=== PATIENT | female | born 1960 | race African-American/Black ===

== ENCOUNTER 2017-03-07 18:26 | Emergency (ER) | payer BC ==
--- NOTE | 2017-03-07 19:01 | ER Document Report ---
ED Medical Screen (RME) - General Chief Complaint: Foreign Body Stated Complaint: FOREIGN OBJECT IN THROAT Notes: Patient feels as if she has a piece of possibly a taco caught in the back of her throat. Initially, it was somewhat on the right side, but now feels like it 's in the midline. At times it hurts her to swallow. Not short of breath. Has not produced any blood. Her voice is normal. I visualized his best I can by direct visualization of the posterior oropharynx and I do not see any injury or wound or blood or foreign body in any of the tissues in the back of the throat. TRAVEL OUTSIDE OF THE [place] IN LAST 30 DAYS: No - Related Data Allergies/Adverse Reactions: Penicillins Allergy (Verified 12/23/14 11:54) Past Medical History - Past Medical History Cardiac Medical History: Reports: Hx Hypercholesterolemia, Hx Hypertension Endocrine Medical History: Reports: Hx Diabetes Mellitus Type 2 Renal/ Medical History: Denies: Hx Peritoneal Dialysis GI Medical History: Reports: Hx Gastroesophageal Reflux Disease Past Surgical History: Reports: Hx Hysterectomy, Hx Tonsillectomy - Immunizations Hx Diphtheria, Pertussis, Tetanus Vaccination: No Physical Exam - Vital signs Vitals: Temp Pulse Resp BP Pulse Ox 97.6 F 105 H 18 155/72 H 100 03/07/17 18:30 03/07/17 18:30 03/07/17 18:30 03/07/17 18:30 03/07/17 18:30 Course - Vital Signs Vital signs: Temp Pulse Resp BP Pulse Ox 97.6 F 105 H 18 155/72 H 100 03/07/17 18:30 03/07/17 18:30 03/07/17 18:30 03/07/17 18:30 03/07/17 18:30
[2017-03-07] MEDS ORDERED: LIDOCAINE 2% VISCOUS SOLN 20 ML UDCUP PO ONE (20:56)
--- NOTE | 2017-03-07 21:28 | ER Document Report ---
ED Foreign Body - General Chief Complaint: Foreign Body Stated Complaint: FOREIGN OBJECT IN THROAT Mode of Arrival: Ambulatory Information source: Patient TRAVEL OUTSIDE OF THE [place] IN LAST 30 DAYS: No - HPI Patient complains to provider of: foreign body sensation in throat Notes: Patient was complaints of right-sided throat pain. The patient states that she ate a talk of salad and felt like a chip was stuck in the right side of her throat. She continues to have sharp pain when she swallows in the right side of her throat. She's had no choking or gagging. She has been able to eat food and drink water since this occurred without difficulty. She is able to swallow her secretions without difficulty. He denies any difficulty breathing or swallowing. No fevers. No nausea, vomiting, diarrhea. No bowel pain. No chest pain or short of breath. Pain is worse when she swallows, nothing makes it better. She denies any other complaints at this time. - Related Data Allergies/Adverse Reactions: Penicillins Allergy (Verified 12/23/14 11:54) Past Medical History - Social History Smoking Status: Never Smoker Family History: Reviewed & Not Pertinent - Past Medical History Cardiac Medical History: Reports: Hx Hypercholesterolemia, Hx Hypertension Endocrine Medical History: Reports: Hx Diabetes Mellitus Type 2 Renal/ Medical History: Denies: Hx Peritoneal Dialysis GI Medical History: Reports: Hx Gastroesophageal Reflux Disease Past Surgical History: Reports: Hx Hysterectomy, Hx Tonsillectomy - Immunizations Hx Diphtheria, Pertussis, Tetanus Vaccination: No Review of Systems - Review of Systems -: Yes All other systems reviewed and negative Physical Exam - Vital signs Vitals: Temp Pulse Resp BP Pulse Ox 97.6 F 105 H 18 155/72 H 100 03/07/17 18:30 03/07/17 18:30 03/07/17 18:30 03/07/17 18:30 03/07/17 18:30 Interpretation: Normal Notes: GENERAL: alert, cooperative, nontoxic, no distress. HEAD: normocephalic, atraumatic EYES: conjunctiva pink without discharge, no external redness or swelling. EARS: no external swelling, no external redness. TMs pearly martin with normal landmarks and no perforation. NOSE: atraumatic, no external swelling MOUTH/THROAT: mucous membranes moist and pink, posterior pharynx without erythema, swelling, exudate. No trismus or drooling. No foreign body identified on exam. There is no stridor. NECK: soft, supple, full range of motion, no meningismus. No swelling. CHEST: no distress, lungs clear and equal throughout. No wheezing, rales, rhonchi. CARDIAC: regular rate and rhythm, no murmur, normal capillary refill, normal pulses. No peripheral edema noted. ABDOMEN: Soft, nontender. BACK: full range of motion, no CVA tenderness. EXTREMITIES: full range of motion of all extremities. No redness, no swelling. NEURO: alert and oriented 3, no focal deficits, full range of motion of all extremities. PYSCH: appropriate mood, affect. Patient is cooperative. SKIN: pink, warm, dry, no rash. Course - Re-evaluation Re-evalutation: 03/08/17 00:03 Patient is nontoxic. Stable vitals. The patient has a sensation that she may have something stuck in the right side of her throat, but she is able to swallow food and drink without any difficulty. She is having no drooling, no stridor, respiratory distress. She is resting comfortably. CT shows no obvious foreign body or other abnormality. His possible that the patient has a scratch is giving her a foreign body sensation. This point the patient will be discharged home with a referral to ENT. She was instructed that if she continues to have the feeling for by she should follow-up with ENT, she should return to emergency department if pain gets worse, she has persistent vomiting, difficulty breathing or swallowing, or has any further concerns. The patient is noted to have elevated blood pressure during today's emergency department visit. The patient was informed of this finding. The patient was instructed that this may be related to pre-hypertension and requires further evaluation with a primary care provider. The patient has no hypertensive symptoms at this time. The patient's emergency department workup and current diagnosis were explained to the patient and or family. Follow-up instructions were provided. Medications if prescribed were discussed. Instructions for when to return to the emergency department including specific worrisome symptoms were discussed with the patient and/or family. - Vital Signs Vital signs: Temp Pulse Resp BP Pulse Ox 97.6 F 105 H 18 155/72 H 100 03/07/17 18:30 03/07/17 18:30 03/07/17 18:30 03/07/17 18:30 03/07/17 18:30 - Laboratory Result Diagrams: 03/07/17 21:24 03/07/17 21:24 Laboratory results interpreted by me: 03/07/17 03/07/17 21:24 21:24 RDW 14.5 H Glucose 179 H - Diagnostic Test Radiology reviewed: Image reviewed, Reports reviewed Discharge - Discharge Clinical Impression: Foreign body sensation in throat Condition: Stable Disposition: HOME, SELF-CARE Instructions: Esophageal Foreign Body ([facility]) Additional Instructions: Follow-up with ENT if not better by Thursday. Follow-up sooner for increasing pain, difficulty breathing, difficulty swallowing, chest pain, fever, persistent vomiting, or any further concerns. Your blood pressure was elevated during today's visit. Have this rechecked with your doctor. Referrals: [facility] [Primary Care Provider] - Follow up as needed MISAEL BRODERICK MD [ACTIVE STAFF] - Follow up as needed
[2017-03-07 21:35] LABS: ABSOLUTE LYMPHOCYTES (AUTO) 1.4 10^3/uL (0.5-4.7); ABSOLUTE MONOCYTES (AUTO) 0.3 10^3/uL (0.1-1.4); ABSOLUTE NEUT (AUTO) 4.4 10^3/uL (1.7-8.2); BASOPHILS % (AUTO) 0.5 % (0-2); EOSINOPHILS % (AUTO) 0.3 % (0-6); HEMATOCRIT 36.3 % (36.0-47.0); HEMOGLOBIN 12.1 g/dL (12.0-15.5); LYMPHOCYTES % (AUTO) 23.3 % (13-45); MEAN CORPUSCULAR HGB CONC 33.4 g/dL (32.0-36.0); MEAN CORPUSCULAR VOLUME 81 fl (80-97); MONOCYTES % (AUTO) 4.6 % (3-13); RED BLOOD COUNT 4.49 10^6/uL (3.72-5.28); RED CELL DISTRIBUTION WIDTH 14.5 % (11.5-14.0); SEGMENTED NEUTROPHILS % (AUTO) 71.3 % (42-78); WHITE BLOOD COUNT 6.2 10^3/uL (4.0-10.5)
[2017-03-07 21:48] LABS: ALANINE AMINOTRANSFERASE 31 U/L (9-52); ALBUMIN 4.5 g/dL (3.5-5.0); ALKALINE PHOSPHATASE 68 U/L (38-126); ANION GAP 11 (5-19); ASPARTATE AMINO TRANSFERASE 20 U/L (14-36); BILIRUBIN,DIRECT 0.1 mg/dL (0.0-0.4); BILIRUBIN,TOTAL 0.5 mg/dL (0.2-1.3); BLOOD UREA NITROGEN 16 mg/dL (7-20); CALCIUM 10.2 mg/dL (8.4-10.2); CARBON DIOXIDE 28 mmol/L (22-30); CHLORIDE 104 mmol/L (98-107); CREATININE RESULT 0.55 mg/dL (0.52-1.25); GLUCOSE 179 mg/dL (75-110); POTASSIUM 3.8 mmol/L (3.6-5.0); SODIUM 142.6 mmol/L (137-145); TOTAL PROTEIN 7.6 g/dL (6.3-8.2)
[2017-03-08 00:42] VITALS: BP 149/70
== END 2017-03-08 00:41 | disposition home or self-care (01) ==
LOC: ER 18:26
DX: R09.89 Other specified symptoms and signs involving the circulatory and respiratory systems (principal)
CPT/HCPCS: 99284; 36415; 85025; 80053; 70491; J3490

== ENCOUNTER → 2017-12-03 | Outpatient (CLI) | payer BC ==
--- NOTE | 2017-12-03 16:41 | XCELERA REPORT ---
[address] [address] Lower Extremity Venous Evaluation Name: HERNAN BENTLEY Age: 57 yrs Gender: Female : 1960 Patient Status: Outpatient Patient Location: Study Date: 12/03/2017 02:51 PM Procedure: Color flow and duplex imaging of the veins of the left lower extremity as well as the right Common Femoral vein. Reason For Study: LLE PAIN Ordering Physician: GUSTAVO CAMARENA PA-C Performed By: Dee Dee Rock Right Sided Venous Evaluation The right common femoral vein is fully compressible. Spontaneous and phasic flow is present in the right common femoral vein. Left Sided Venous Evaluation Normal vessel filling wall to wall, compression and augmentation as well as Colour flow down to the infrageniculate veins. Interpretation Summary No duplex evidence of DVT or obstruction in the left lower extremity nor in the right Common Femoral vein. : GUSTAVO CAMARENA PA-C > John Mina
== END ==
LOC: SP 14:32
PROVIDERS: ATTEND Physician Assistant
DX: M25.562 Pain in left knee (principal)
CPT/HCPCS: 93971

== ENCOUNTER 2018-04-30 20:10 | Observation (INO) | payer BC ==
--- NOTE | 2018-04-30 20:55 | ER Document Report ---
ED General - General Chief Complaint: Chest Pain Stated Complaint: CHEST PAIN Time Seen by Provider: 04/30/18 20:36 Notes: Patient is a 57-year-old female with a past medical history of morbid obesity, lif-kdmugxg-pzdlplkif diabetes, hypertension, hyperlipidemia, no known history of coronary artery disease who presents with left-sided chest pressure that has been ongoing since approximately 10 AM. Patient describes it as a constant, pressure-like sensation over her left chest that was moderately improved with nitroglycerin. She denies a history of similar symptoms in the past. Nothing triggered or worsen the pain when present. She denies any radiation of the pain but does note associated diaphoresis and shortness of breath. She had a normal stress test approximately 1-2 years ago but has never had a cardiac catheterization. To my assessment she states that her chest pain is mostly resolved although she does note some slight ongoing heaviness to the left side of her chest. She has not seen her primary doctor regarding today's concerns. She denies any history of DVT or pulmonary embolus and does not use any supplemental estrogen therapy. TRAVEL OUTSIDE OF THE [place] IN LAST 30 DAYS: No - Related Data Allergies/Adverse Reactions: Penicillins Allergy (Verified 12/23/14 11:54) Past Medical History - General Information source: Patient - Social History Smoking Status: Never Smoker Chew tobacco use (# tins/day): No Frequency of alcohol use: None Drug Abuse: None Lives with: Family Family History: Reviewed & Not Pertinent Patient has suicidal ideation: No Patient has homicidal ideation: No - Past Medical History Cardiac Medical History: Reports: Hx Hypercholesterolemia, Hx Hypertension Endocrine Medical History: Reports: Hx Diabetes Mellitus Type 2 Renal/ Medical History: Denies: Hx Peritoneal Dialysis GI Medical History: Reports: Hx Gastroesophageal Reflux Disease Past Surgical History: Reports: Hx Hysterectomy, Hx Tonsillectomy - Immunizations Hx Diphtheria, Pertussis, Tetanus Vaccination: No Review of Systems - Review of Systems Notes: Constitutional: Negative for fever. HENT: Negative for sore throat. Eyes: Negative for visual changes. Cardiovascular: Positive for chest pain. Respiratory: Positive for shortness of breath. Gastrointestinal: Negative for abdominal pain, vomiting or diarrhea. Genitourinary: Negative for dysuria. Musculoskeletal: Negative for back pain. Skin: Negative for rash. Neurological: Negative for headaches, weakness or numbness. 10 point ROS negative except as marked above and in HPI. Physical Exam - Vital signs Vitals: Resp Pulse Ox 10 L 95 04/30/18 20:16 04/30/18 20:16 Interpretation: Tachycardic Notes: PHYSICAL EXAMINATION: GENERAL: Well-appearing, well-nourished and in no acute distress. HEAD: Atraumatic, normocephalic. EYES: Pupils equal round and reactive to light, extraocular movements intact, sclera anicteric, conjunctiva are normal. ENT: nares patent, oropharynx clear without exudates. Moist mucous membranes. NECK: Normal range of motion, supple without lymphadenopathy LUNGS: Breath sounds clear to auscultation bilaterally and equal. No wheezes rales or rhonchi. HEART: Regular tachycardia without murmurs ABDOMEN: Soft, nontender, normoactive bowel sounds. No guarding, no rebound. No masses appreciated. EXTREMITIES: Normal range of motion, no pitting or edema. No cyanosis. NEUROLOGICAL: No focal neurological deficits. Moves all extremities spontaneously and on command. PSYCH: Normal mood, normal affect. SKIN: Warm, Dry, normal turgor, no rashes or lesions noted. Course - Re-evaluation Re-evalutation: 04/30/18 20:54 Presentation of chest pain in an otherwise well appearing patient. Heart score is 4 at time of presentation due to age, risk factors, and history. EKG without ischemic changes. CXR without evidence of pneumothorax or pneumonia. No widened mediastinum. Aortic dissection also seems unlikely given history, symmetric pulses, CXR, and vitals. Pulmonary embolus is also in the differential given the patient's tachycardia which she does not have a history. Will obtain a d-dimer with a positive threshold of 0.58. Awaiting troponin assay testing and then will discuss with the hospitalist for admission given the patient is moderately high risk. 04/30/18 22:23 D-dimer is elevated. Will obtain CTA of the chest to further evaluate. The patient otherwise continues to appear well, no current chest pain. 05/01/18 01:39 CTA of the chest is clear. Repeat troponin is normal. Patient is currently without chest pain. However given her elevated heart score and inability to obtain rapid outpatient follow-up will discuss with the hospitalist for admission. - Vital Signs Vital signs: Temp Pulse Resp BP Pulse Ox 98.6 F 19 118/89 H 98 04/30/18 20:30 05/01/18 00:31 05/01/18 00:31 05/01/18 00:31 - Laboratory Result Diagrams: 04/30/18 21:00 04/30/18 21:00 Laboratory results interpreted by me: 04/30/18 04/30/18 04/30/18 21:00 21:00 21:00 MCH 26.7 L RDW 14.6 H Seg Neuts % (Manual) 90 H Lymphocytes % (Manual) 5 L Abs Neuts (Manual) 8.5 H D-Dimer 0.82 H Potassium 3.4 L Glucose 147 H - Diagnostic Test Radiology reviewed: Image reviewed, Reports reviewed Radiology results interpreted by me: 04/30/18 20:55 Chest x-ray: No acute infiltrate or pneumothorax - EKG Interpretation by Me Additional EKG results interpreted by me: 04/30/18 20:55 Sinus tachycardia. Rate 108. No ST elevations or depressions. QTC is 472. Discharge - Discharge Clinical Impression: Tachycardia Chest pain Qualifiers: Chest pain type: unspecified Qualified Code(s): R07.9 - Chest pain, unspecified Condition: Fair Disposition: ADMITTED OBSERVATION Admitting Provider: Hospitalist Unit Admitted: Telemetry Referrals: [facility] [NO LOCAL MD] - Follow up as needed
[2018-04-30] MEDS ORDERED: NITROGLYCERIN 0.4 MG/TAB 25 TAB/BOTTLE SL PRN (20:57)
--- NOTE | 2018-04-30 20:58 | RADIOLOGY REPORT (SQ) ---
EXAM DESCRIPTION: CHEST SINGLE VIEW COMPLETED DATE/TIME: 04/30/2018 8:49 pm REASON FOR STUDY: ana stein COMPARISON: 03/27/2016 EXAM PARAMETERS: NUMBER OF VIEWS: One view. TECHNIQUE: Single frontal radiographic view of the chest acquired. RADIATION DOSE: NA LIMITATIONS: None. FINDINGS: LUNGS AND PLEURA: No opacities, masses or pneumothorax. No pleural effusion. MEDIASTINUM AND HILAR STRUCTURES: No masses. Contour normal. HEART AND VASCULAR STRUCTURES: Heart normal in size. Normal vasculature. BONES: No acute findings. HARDWARE: None in the chest. OTHER: No other significant finding. IMPRESSION: NO ACUTE RADIOGRAPHIC FINDING IN THE CHEST. TECHNICAL DOCUMENTATION: JOB ID: [id number] [employer]- All Rights Reserved Reading location - IP/workstation name: [email or web address]
[2018-04-30 21:27] LABS: HEMATOCRIT 36.3 % (36.0-47.0); HEMOGLOBIN 12.1 g/dL (12.0-15.5); MEAN CORPUSCULAR HEMOGLOBIN 26.7 pg (27.0-33.4); MEAN CORPUSCULAR HGB CONC 33.4 g/dL (32.0-36.0); MEAN CORPUSCULAR VOLUME 80 fl (80-97); PLATELET COUNT 334 10^3/uL (150-450); RED BLOOD COUNT 4.53 10^6/uL (3.72-5.28); RED CELL DISTRIBUTION WIDTH 14.6 % (11.5-14.0); WHITE BLOOD COUNT 9.4 10^3/uL (4.0-10.5)
[2018-04-30 21:37] LABS: ANION GAP 14 (5-19); BLOOD UREA NITROGEN 16 mg/dL (7-20); CALCIUM 9.8 mg/dL (8.4-10.2); CARBON DIOXIDE 25 mmol/L (22-30); CHLORIDE 99 mmol/L (98-107); GLUCOSE 147 mg/dL (75-110); POTASSIUM 3.4 mmol/L (3.6-5.0); SODIUM 137.9 mmol/L (137-145)
[2018-04-30 21:46] LABS: ABSOLUTE LYMPHOCYTES# (MANUAL) 0.5 10^3/uL (0.5-4.7); ABSOLUTE MONOCYTES # (MANUAL) 0.4 10^3/uL (0.1-1.4); ABSOLUTE NEUTROPHILS# (MANUAL) 8.5 10^3/uL (1.7-8.2); BASOPHILS % (MANUAL) 0 % (0-2); EOSINOPHILS % (MANUAL) 1 % (0-6); LYMPHOCYTES % (MANUAL) 5 % (13-45); MONOCYTES % (MANUAL) 4 % (3-13); SEGMENTED NEUTROPHILS % (MAN) 90 % (42-78); TOTAL CELLS COUNTED 100
[2018-04-30 21:49] LABS: ANISOCYTOSIS SLIGHT; PLATELET COMMENT ADEQUATE; PLATELET LARGE PRESENT; TOXIC GRANULATION SLIGHT
--- NOTE | 2018-04-30 21:51 | EKG REPORT ---
SEVERITY:- OTHERWISE NORMAL ECG - SINUS TACHYCARDIA : Confirmed by: Silke Alcaraz MD 30-Apr-2018 21:51:18
[2018-04-30] MEDS: FENTANYL CITRATE INJ/PF 100 MCG/2 ML AMPUL IV PRN (22:39)
[2018-04-30] MEDS ORDERED: ONDANSETRON HCL INJ/PF 4 MG/2 ML SDV IV ONE (23:08)
--- NOTE | 2018-04-30 23:55 | RADIOLOGY REPORT (SQ) ---
EXAM DESCRIPTION: CT CHEST ANGIOGRAPHY WITHOUT THEN WITH IV CONTRAST CLINICAL HISTORY: 57 years Female, eval pe Comparison: 5.5.16 Technique: IV contrast. Coronal and sagittal reformat. 3d reconstruction. This exam was performed according to our departmental dose-optimization program, which includes automated exposure control, adjustment of the mA and/or kV according to patient size and/or use of iterative reconstruction technique.[facility]: Dose Right [facility]: CareDose [facility]: Dose Right [facility]: Teradose 4D [facility]: Smart DanceTrippin LIMITATIONS: None Findings: No pulmonary embolus. No right ventricular strain. Clear lungs. Atherosclerosis. Inferior neck, axillae, mediastinum, lungs, airway, lymphatics, heart, vasculature, upper abdomen, and musculoskeleton appear unremarkable. Impression: No pulmonary embolus. No acute cardiopulmonary findings.
[2018-05-01] MEDS ORDERED: METOCLOPRAMIDE HCL INJ/PF 10 MG/2 ML SDV IV ONE (00:01)
[2018-05-01] MEDS ORDERED: NITROGLYCERIN 0.4 MG/TAB 25 TAB/BOTTLE SL PRN (01:41)
[2018-05-01] MEDS ORDERED: DEXTROSE 40% GEL 15 GM TUBE PO PRN ×2 (01:41)
[2018-05-01] MEDS ORDERED: INSULIN LISPRO 100 UNIT/ML 3 ML VIAL SUBCUT PRN (01:41)
[2018-05-01] MEDS ORDERED: DEXTROSE 50%-WATER 25 GM/50 ML DISP.SYRIN IV PRN ×2 (01:41)
[2018-05-01] MEDS ORDERED: GLUCAGON,HUMAN RECOMB 1 MG INJ IM PRN (01:41)
[2018-05-01] MEDS ORDERED: HYDRALAZINE HCL INJ/PF 20 MG/1 ML SDV IV PRN (01:44)
[2018-05-01] MEDS: FENTANYL CITRATE INJ/PF 100 MCG/2 ML AMPUL IV PRN (01:52)
[2018-05-01] MEDS ORDERED: FAMOTIDINE 20 MG TABLET PO ONE (02:13)
[2018-05-01] MEDS: HEPARIN SOD (PORCINE) 5,000 UNIT/ML 1 ML SYRINGE SUBCUT SCH ×2 (05:38→13:22)
[2018-05-01] MEDS: DIAZEPAM 5 MG TABLET PO PRN ×2 (05:38→11:09)
[2018-05-01] MEDS ORDERED: LACTULOSE SYRUP 20 GM/30 ML UDCUP PO ONE (06:26)
--- NOTE | 2018-05-01 06:32 | PDOC H&P ---
History of Present Illness Admission Date/PCP: 05/01/18 01:47 IGNACIO SAVAGE MD Patient complains of: Palpitations and chest pain History of Present Illness: HERNAN BENTLEY is a 57 year old female with history of obesity, diabetes, hypertension and dyslipidemia. Presents with 12 hours of 5 out of 5, intermittent dull, chest and abdominal pain without radiation, associated with nausea, flatulence, anxiety, shortness of breath and palpitations. Patient denies exacerbating or alleviating factors. Patient had negative cardiac stress test approximately 2 years ago. Patient denies recent change in medications and is otherwise felt well in the emergency room she has an unremarkable workup including a CT of the chest which is negative. She is referred to the hospitalist for observation. Past Medical History Cardiac Medical History: Reports: Hyperlipidema, Hypertension Endocrine Medical History: Reports: Diabetes Mellitus Type 2, Obesity GI Medical History: Reports: Gastroesophageal Reflux Disease Psychiatric Medical History: Denies: Substance Abuse, Tobacco Dependency Past Surgical History Past Surgical History: Reports: Hysterectomy, Tonsillectomy Social History Information Source: Patient Lives with: Family Smoking Status: Never Smoker Frequency of Alcohol Use: None Hx Recreational Drug Use: No - denies Drugs: None Hx Prescription Drug Abuse: No - Advance Directive Resuscitation Status: Full Code Family History Family History: Reviewed & Not Pertinent Parental Family History Reviewed: Yes Children Family History Reviewed: Yes Sibling(s) Family History Reviewed.: Yes Medication/Allergy Home Medications: Aspirin [Ecotrin 81 mg EC Tablet] 81 mg PO DAILY tabec 03/28/16 Atorvastatin Calcium [Lipitor 20 mg Tablet] 20 mg PO QHS #30 tablet 03/28/16 Lisinopril/Hydrochlorothiazide [Lisinopril-Hctz 20-25 mg Tab] 1 each PO DAILY # 30 tablet 03/28/16 Metformin HCl [Glucophage 500 mg Tablet] 500 mg PO BID #60 tablet 03/28/16 Ondansetron [Zofran Odt 4 mg Tablet] 1 tab PO Q6H #15 tab.rapdis 04/23/16 Allergies/Adverse Reactions: Penicillins Allergy (Verified 12/23/14 11:54) Review of Systems Constitutional: ABSENT: chills, fever(s), headache(s), weight gain, weight loss Eyes: ABSENT: visual disturbances Ears: ABSENT: hearing changes Cardiovascular: ABSENT: chest pain, dyspnea on exertion, edema, orthropnea, palpitations Respiratory: ABSENT: cough, hemoptysis Gastrointestinal: ABSENT: abdominal pain, constipation, diarrhea, hematemesis, hematochezia, nausea, vomiting Genitourinary: ABSENT: dysuria, hematuria Musculoskeletal: ABSENT: joint swelling Integumentary: ABSENT: rash, wounds Neurological: ABSENT: abnormal gait, abnormal speech, confusion, dizziness, focal weakness, syncope Psychiatric: ABSENT: anxiety, depression, homidical ideation, suicidal ideation Endocrine: ABSENT: cold intolerance, heat intolerance, polydipsia, polyuria Hematologic/Lymphatic: ABSENT: easy bleeding, easy bruising Physical Exam Vital Signs: Temp Pulse Resp BP Pulse Ox 99.3 F 111 H 15 121/60 99 05/01/18 02:58 05/01/18 02:58 05/01/18 02:58 05/01/18 02:58 05/01/18 02:58 Intake & Output 04/29/18 04/30/18 05/01/18 11:59 11:59 11:59 Weight 99 kg General appearance: PRESENT: cooperative, disheveled, mild distress, well- developed, well-nourished Head exam: PRESENT: atraumatic, normocephalic Eye exam: PRESENT: conjunctiva pink, EOMI, PERRLA. ABSENT: scleral icterus Ear exam: PRESENT: normal external ear exam Mouth exam: PRESENT: moist, tongue midline Neck exam: ABSENT: carotid bruit, JVD, lymphadenopathy, thyromegaly Respiratory exam: PRESENT: clear to auscultation gabriel. ABSENT: rales, rhonchi, wheezes Cardiovascular exam: PRESENT: RRR. ABSENT: diastolic murmur, rubs, systolic murmur Pulses: PRESENT: normal dorsalis pedis pul Vascular exam: PRESENT: normal capillary refill GI/Abdominal exam: PRESENT: distended, hypoactive bowel sounds, normal bowel sounds, soft, tenderness. ABSENT: guarding, mass, organolmegaly, rebound Rectal exam: PRESENT: deferred Extremities exam: PRESENT: full ROM. ABSENT: calf tenderness, clubbing, pedal edema Neurological exam: PRESENT: alert, awake, oriented to person, oriented to place , oriented to time, oriented to situation, CN II-XII grossly intact. ABSENT: motor sensory deficit Psychiatric exam: PRESENT: anxious. ABSENT: homicidal ideation, suicidal ideation Skin exam: PRESENT: dry, intact, warm. ABSENT: cyanosis, rash Results Impressions: Chest X-Ray 04/30/18 20:39 IMPRESSION: NO ACUTE RADIOGRAPHIC FINDING IN THE CHEST. Assessment & Plan - Diagnosis (1) Atypical chest pain Is this a current diagnosis for this admission?: Yes Plan: Atypical chest pain though the patient's pain is atypical there are multiple risk factors for coronary artery disease and subsequently will observe and evaluation of acute coronary syndrome versus coronary artery disease with anginal equivalents. Cardiac monitoring blood pressure Q6 hours ,TSH, lipid profile, serial cardiac enzymes and cardiac stress test (2) Diabetes mellitus type 2 in nonobese Is this a current diagnosis for this admission?: Yes Plan: Home regiment with exception to metformin and Humalog sliding scale (3) HTN (hypertension) Is this a current diagnosis for this admission?: Yes Plan: RAEGAN inhibitor and home regiment - Time Time Spent: 30 to 50 Minutes - Inpatient Certification Medical Necessity: Need Close Monitoring Due to Risk of Patient Decompensation
[2018-05-01 08:10] LABS: ANION GAP 14 (5-19); BLOOD UREA NITROGEN 11 mg/dL (7-20); CALCIUM 9.7 mg/dL (8.4-10.2); CARBON DIOXIDE 28 mmol/L (22-30); CHLORIDE 98 mmol/L (98-107); CHOLESTEROL 190.64 mg/dL (0-200); GLUCOSE 153 mg/dL (75-110); POTASSIUM 3.2 mmol/L (3.6-5.0); SODIUM 139.8 mmol/L (137-145); TRIGLYCERIDES 55 mg/dL (<150)
[2018-05-01 08:21] LABS: CREATINE KINASE MB 0.72 ng/mL (<4.55); DIRECT LDL 100 mg/dL (<100)
[2018-05-01 08:26] LABS: TROPONIN I < 0.012 ng/mL
[2018-05-01] MEDS ORDERED: ASPIRIN 81 MG TABLET, ENT COATED PO SCH (10:00)
[2018-05-01] MEDS ORDERED: (PENDING PHARMACY ID) (Lisinopril/Hydrochlorothiazide [Lisinopril-Hctz 20-25 Mg Tab] 1 EAC PO SCH (10:00)
[2018-05-01] MEDS ORDERED: LISINOPRIL 10 MG TABLET PO SCH (10:00)
[2018-05-01] MEDS ORDERED: HYDROCHLOROTHIAZIDE 25 MG TABLET PO SCH (10:00)
[2018-05-01] MEDS ORDERED: REGADENOSON INJ 0.4 MG/5 ML DISP.SYRIN IV ONE (10:35)
[2018-05-01] MEDS: DOCUSATE SODIUM 100 MG CAPSULE PO SCH ×2 (11:11→17:24)
--- NOTE | 2018-05-01 13:53 | DRAGON STRESS TEST REPORT ---
INTRAVENOUS LEXISCAN CARDIOLITE STRESS TEST USING SINGLE PHOTON EMMISION COMPUTERIZED TOMOGRAPHIC. DATE OF PROCEDURE: May 01, 2018, INDICATION : Chest pain CARDIAC RISK FACTORS: Diabetes, hypertension, dyslipidemia RESTING EKG: Sinus rhythm without any baseline ST-T wave changes. STRESS EKG: No significant ST segment changes noted with LexiScan bolus REASON FOR TERMINATION: Protocol. PROCEDURE REPORT: Baseline heart rate 107 beats per minute with blood pressure of 112/66. Patient had no significant complaints. Patient was bolused with Lexiscan 0.4 mg intravenously followed by saline bolus. Heart rate at 2 minutes post bolus 126 with a blood pressure of 101/54. 3 minutes post bolus heart rate 125 with blood pressure of 103/53. No significant EKG changes were noted. Patient had no significant complaints during the procedure or postprocedure. CONCLUSIONS: Normal EKG and hemodynamic response to IV LexiScan. NUCLEAR DATA: At rest the patient was given 13.15 millicuries of technetium 99 sestamibi injected intravenously. As per protocol rest gated SPECT images were obtained. On day of stress test, the patient was given intravenous LexiScan at a dose of 0.4 mg in 5 mL intravenously, followed by flush with normal saline. Subsequently the stress dose of 33.1 millicuries of technetium 99 sestamibi was injected intravenously. As per protocol stress gated images were obtained. NUCLEAR INTERPRETATION: Both raw and processed data were used for interpretation. Visual, qualitative, computer-generated quantitative data was used. There was good myocardial uptake of technetium compound. Motion artifact and soft tissue attenuations were noted. Increased visceral uptake was noted. No definitive areas of transient perfusion defect noted, No definitive areas of fixed perfusion defect or scars noted. EKG gated imaging showed LV EF at 62, rest and stress gated EF similar visually. T. I D. ratio was 1.11. Lung heart ratio noted to be within normal limits 0.32. No significant extracardiac and abnormal radiotracer activities were noted. RV free wall uptake was noted to be WNL. IMPRESSION: Also refer to comments under nuclear interpretation. Also test results needs to be interpreted in the context of pretest probability. 1. No definitive areas of transient perfusion defect noted. 2. There is no definitive scintigraphic evidence of myocardial infarction/scar. 3. EKG gated imaging shows left ventricular ejection fraction of approx. 62 %. 4. Clinical correlation requested as occasionally single vessel disease or balanced ischemia could be missed. In approximately 10% of the cases Lexiscan may not cause adequate vasodilatory stress. RECOMMENDATIONS: Aggressive risk factor modification and medical management. Further evaluation may be needed if continued symptoms or other high risk indicators are noted on clinical evaluation. Close cardiology follow-up is also recommended. Clinical correlation with echocardiogram derived ejection fraction. Inability to exercise by itself can lead to increased cardiovascular event risks. Consider cardiology consultation and or follow-up if clinically indicated. I am available for cardiology evaluation and consultation if requested by the outside deliverer, unless patient already has a banquet prep cook. GLORY
--- NOTE | 2018-05-01 14:43 | PDOC CONSULTATION ---
Consultation Consult Date: 05/01/18 Attending physician:: LETY OLSEN Consult reason:: Chest pain History of Present Illness Admission Date/PCP: 05/01/18 01:47 IGNACIO SAVAGE MD Patient complains of: Chest pain History of Present Illness: HERNAN BENTLEY is a 57 year old female with history of obesity, diabetes, hypertension and dyslipidemia. Presents with 12 hours of 5 out of 5, intermittent dull, chest and abdominal pain without radiation, associated with nausea, flatulence, anxiety, shortness of breath and palpitations. Patient denies exacerbating or alleviating factors. Patient had negative cardiac stress test approximately 2 years ago. Patient denies recent change in medications and is otherwise felt well in the emergency room she has an unremarkable workup including a CT of the chest which is negative. She is referred to the hospitalist for observation. This history was reviewed and confirmed. Patient described the chest pain as aching and tightness in the chest which tends to get worse by taking in a deep breath and also with some twisting and turning. Patient describes the discomfort is much improved than when she came in. Patient does describe a history of acid reflux. Although patient denies anxiety, patient is brother in the room admits that patient has been anxious and stressed. Patient does give a family history of premature CAD. Past Medical History Cardiac Medical History: Reports: Hyperlipidema, Hypertension Endocrine Medical History: Reports: Diabetes Mellitus Type 2, Obesity GI Medical History: Reports: Gastroesophageal Reflux Disease Psychiatric Medical History: Denies: Depression, Substance Abuse, Tobacco Dependency Past Surgical History Past Surgical History: Reports: Hysterectomy, Tonsillectomy Social History Information Source: Patient Lives with: Family Smoking Status: Never Smoker Frequency of Alcohol Use: None Hx Recreational Drug Use: No - denies Drugs: None Hx Prescription Drug Abuse: No - Advance Directive Resuscitation Status: Full Code Surrogate healthcare decision maker:: Patient's brother is the surrogate decision maker Family History Family History: Reviewed & Not Pertinent Parental Family History Reviewed: Yes Children Family History Reviewed: Yes Sibling(s) Family History Reviewed.: Yes - Family history of premature CAD and CHF the family Medication/Allergy Home Medications: Aspirin [Ecotrin 81 mg EC Tablet] 81 mg PO DAILY tabec 03/28/16 Cetirizine HCl [Zyrtec 10 mg Tablet] 10 mg PO DAILYP PRN 05/01/18 Hydrochlorothiazide [Hydrodiuril 25 mg Tablet] 25 mg PO DAILY 05/01/18 Losartan Potassium [Cozaar 25 mg Tablet] 25 mg PO DAILY 05/01/18 Multivit/Folic Acid/Vit K1 [One-A-Day Women's 50 Plus Tab] 1 each PO DAILY 05/01 Pravastatin Sodium [Pravachol] 40 mg PO DAILY 05/01/18 Saxagliptin HCl/Metformin HCl [Kombiglyze Xr 5-1,000 mg Tab] 1 tab PO QAM Ubidecarenone/Vit E Acet [Co Q-10 100 mg Softgel] 1 each PO DAILY 05/01/18 Allergies/Adverse Reactions: Penicillins Allergy (Severe, Verified 05/01/18 10:34) Anaphylaxis Review of Systems Review of Systems: Please see history of present illness and past medical history as wall. Constitutional: No fever or chills reported. Head : No recent chronic headaches, recent head injury. Eyes: No recent eye pain, diplopia, redness, discharge, acute visual changes. Ears: No recent chronic ear pain, acute hearing loss, ear discharge. Oral cavity: No recent ulcerations, bleeding, oral cavity discomfort. Neck: No recent acute neck pain reported. Hematologic: No recent easy bruising or bleeding. Lymphatic: No recent lymph node enlargement reported. Cardiovascular system review: See history of present illness. Respiratory system review: No hemoptysis or blood clots in the lungs reported. Mild Shortness of breath on exertion Gastrointestinal system review: Negative for any recent acute hematemesis, melena. History of acid reflux. Genitourinary system review: No recent acute or chronic hematuria, flank pain, UTI etc. reported. Skin system review: Negative for any recent abnormal bruising, no rash, no pruritus reported. Neurologic: No prior history of strokes, mini strokes, seizure disorder. Psychologic: No history of major psychosis or major depression reported. Musculoskeletal: Minor aches and pains reported. No acute joint swelling reported. Endocrine: No recent polyuria, polydipsia, recent heat or cold intolerance. Physical Exam Vital Signs: Temp Pulse Resp BP Pulse Ox 100.5 F H 116 H 16 127/54 H 98 05/01/18 07:34 05/01/18 07:34 05/01/18 07:34 05/01/18 07:34 05/01/18 07:34 Intake & Output 04/30/18 05/01/18 05/02/18 06:59 06:59 06:59 Weight 99 kg Exam: GENERAL: well-nourished and in no acute distress. Alert and oriented x3 HEAD: Atraumatic, normocephalic. EYES: Pupils equal round and reactive to light, extraocular movements intact, sclera anicteric, conjunctiva are normal. ENT: TMs normal, nares patent, oropharynx clear without exudates. Moist mucous membranes. No oral ulcerations or bleeding gums noted NECK: supple without lymphadenopathy. Trachea is central. No cervical or axillary lymphadenopathy noted. Carotids are 2+, JVD WNL LUNGS: Respiration seems nonlabored, no significant accessory muscle action noted. Breath sounds clear to auscultation bilaterally and equal noted. No wheezes rales or rhonchi noted. No significant dullness noted on percussion. CHEST: Palpation of the chest wall shows mild midsternal chest wall tenderness. HEART: [place] ATMOSPHERIC PHYSICIST, No PSH, 1/6 ATILIO aortic area, 1/6 zhang systolic murmur mitral area, no rubs, no gallops. ABDOMEN: Soft, no significant tenderness appreciated, normoactive bowel sounds. No guarding, no rebound. No rigidity noted . No masses appreciated. EXTREMITIES: Pedal pulses are 1-2+, no calf tenderness noted. No clubbing or cyanosis. negative pedal edema noted NEUROLOGICAL: Focused neurological exam showed no significant neurologic deficit. Normal speech, no focal weakness appreciated. PSYCH: Normal mood, normal affect. Judgment and insight within normal limits. SKIN: No significant ecchymosis, skin is noted to be warm. MUSCULOSKELETAL EXAM: No significant acute joint swelling noted. Results Laboratory Results: 05/01/18 06:35 05/01/18 06:35 Sodium 139.8 Potassium 3.2 L Chloride 98 Carbon Dioxide 28 Anion Gap 14 BUN 11 Creatinine 0.65 Est GFR ( Amer) > 60 Est GFR (Non-Af Amer) > 60 Glucose 153 H Calcium 9.7 Triglycerides 55 Cholesterol 190.64 LDL Cholesterol Direct 100 VLDL Cholesterol 11.0 HDL Cholesterol 58 05/01/18 06:35 CK-MB (CK-2) 0.72 Troponin I < 0.012 EKG Comments: Sinus rhythm without any sustained tachycardia or bradycardia Impressions: Chest X-Ray 04/30/18 20:39 IMPRESSION: NO ACUTE RADIOGRAPHIC FINDING IN THE CHEST. Assessment & Plan - Diagnosis (1) Chest pain Qualifiers: Chest pain type: unspecified Qualified Code(s): R07.9 - Chest pain, unspecified Is this a current diagnosis for this admission?: Yes (2) Tachycardia Is this a current diagnosis for this admission?: Yes (3) Diabetes mellitus type 2 in nonobese Is this a current diagnosis for this admission?: Yes (4) HTN (hypertension) Qualifiers: Hypertension type: essential hypertension Qualified Code(s): I10 - Essential (primary) hypertension Is this a current diagnosis for this admission?: Yes (5) Hypercholesteremia Is this a current diagnosis for this admission?: Yes - Notes Notes: Chest pain: This is felt to be atypical and most likely noncardiac. Patient does however have significant cardiac risk factors. Patient therefore underwent a nuclear stress test which was noted to be negative for pharmacologic stress-induced ischemia. Patient noted to have some chest wall tenderness therefore likely to be chest wall inflammation related but patient does seem to have symptoms of reflux and anxiety therefore GERD and anxiety disorder also in the differential diagnosis. Patient will benefit from empiric proton pump inhibitor therapy and also nonsteroidal anti-inflammatory medications or other analgesics as needed. If patient continues with chest pain and there are no other causes noted further evaluation with either a cardiac CTA, cardiac catheter etc. may become indicated. Tachycardia: Possibly related to stress and anxiety. Recommend beta 1 selective beta-shelly and anxiolytics as needed. May also consider SSRI agent. Diabetes: Currently being expertly managed by hospitalist. Hypertension: Blood pressure goal is 135/85 or less less. Patient seems to be on a good regimen. Dyslipidemia: Continue statin therapy. At this point will sign off. Patient given my card. She can follow-up with me if she wishes. Please reconsult if needed. - Time Time Spent: 30 to 50 Minutes - CODE STATUS was discussed, patient remains full code. More than 50% of the time spent coordinating care, discussing management plans with involved caregivers. Management plans discussed with involved personnels. Medical decision making was of moderate to high complexity, patient 's has multiple comorbidities. Medications reviewed and adjusted accordingly: Yes
[2018-05-01 14:51] LABS: CREATINE KINASE MB 0.65 ng/mL (<4.55)
[2018-05-01 14:53] LABS: TROPONIN I < 0.012 ng/mL
[2018-05-01] MEDS ORDERED: CETIRIZINE 10 MG TABLET PO PRN (15:30)
[2018-05-01] MEDS ORDERED: PHENOL/SODIUM PHENOLATE 100 SPRAY/177 ML BOTTLE PO PRN (16:35)
[2018-05-01] MEDS ORDERED: AZITHROMYCIN 250 MG TABLET PO ONE (17:00)
[2018-05-01 17:36] VITALS: BP 118/62
[2018-05-01] MEDS ORDERED: ONDANSETRON HCL INJ/PF 4 MG/2 ML SDV ONE (18:31)
[2018-05-01] MEDS ORDERED: ONDANSETRON HCL INJ/PF 4 MG/2 ML SDV IV ONE (19:00)
--- NOTE | 2018-05-01 19:35 | PDOC DISCHARGE SUMMARY ---
General - Admit/Disc Date/PCP Admission Date/Primary Care Provider: 05/01/18 01:47 IGNACIO SAVAGE MD Discharge Date: 05/01/18 - Discharge Diagnosis (1) Atypical chest pain Is this a current diagnosis for this admission?: Yes (2) Diabetes mellitus type 2 in nonobese Is this a current diagnosis for this admission?: Yes (3) HTN (hypertension) Is this a current diagnosis for this admission?: Yes (4) Strep pharyngitis Is this a current diagnosis for this admission?: Yes - Additional Information Resuscitation Status: Full Code Discharge Diet: Regular, Other (Comments) - Drink plenty of fluids Discharge Activity: Activity As Tolerated, Balance Activity w/Rest Prescriptions: Lidocaine HCl [Lidocaine HCl Viscous] 15 ml MM Q6HP PRN #100 ml PRN Reason: For Sore Throat Ondansetron [Ondansetron Odt] 4 mg PO Q6HP PRN #20 tab.rapdis PRN Reason: For Nausea/Vomiting RX: Azithromycin [Zithromax] 250 mg PO DAILY #4 tablet RX: Phenol/Sodium Phenolate [Chloraseptic Sore Throat [place] 177 ml] 2 spray PO PRN PRN #1 bottle PRN Reason: Home Medications: RX: Aspirin [Ecotrin 81 mg EC Tablet] 81 mg PO DAILY tabec 03/28/16 Lidocaine HCl [Lidocaine HCl Viscous] 15 ml MM Q6HP PRN #100 ml 05/01/18 Ondansetron [Ondansetron Odt] 4 mg PO Q6HP PRN #20 tab.rapdis 05/01/18 RX: Azithromycin [Zithromax] 250 mg PO DAILY #4 tablet 05/01/18 RX: Cetirizine HCl [Zyrtec 10 mg Tablet] 10 mg PO DAILYP PRN 05/01/18 RX: Hydrochlorothiazide [Hydrodiuril 25 mg Tablet] 25 mg PO DAILY 05/01/18 RX: Losartan Potassium [Cozaar 25 mg Tablet] 25 mg PO DAILY 05/01/18 RX: Multivit/Folic Acid/Vit K1 [One-A-Day Women's 50 Plus Tab] 1 each PO DAILY 05/01/18 RX: Phenol/Sodium Phenolate [Chloraseptic Sore Throat [place] 177 ml] 2 spray PO PRN PRN #1 bottle 05/01/18 RX: Pravastatin Sodium [Pravachol] 40 mg PO DAILY 05/01/18 RX: Saxagliptin HCl/Metformin HCl [Kombiglyze Xr 5-1,000 mg Tab] 1 tab PO QAM RX: Ubidecarenone/Vit E Acet [Co Q-10 100 mg Softgel] 1 each PO DAILY 05/01/18 History of Present Illness History of Present Illness: Per H&P by Dr. Porter HERNAN BENTLEY is a 57 year old female with history of obesity, diabetes, hypertension and dyslipidemia. Presents with 12 hours of 5 out of 5, intermittent dull, chest and abdominal pain without radiation, associated with nausea, flatulence, anxiety, shortness of breath and palpitations. Patient denies exacerbating or alleviating factors. Patient had negative cardiac stress test approximately 2 years ago. Patient denies recent change in medications and is otherwise felt well in the emergency room she has an unremarkable workup including a CT of the chest which is negative. She is referred to the hospitalist for observation. Hospital Course Hospital Course: The patient was admitted with atypical chest pain. EKG demonstrated sinus tachycardia. Chest x-ray was benign. CTA of the chest was normal. Serial troponins were negative 4 Lipid panel is acceptable. A1c 6.4% Nuclear stress test was normal. The patient was admitted to the medical floor on continuous cardiac telemetry. She had no further episodes of chest pain while inpatient. However, she did develop a low-grade temperature (100.5) and mild tachycardia (108). Beginning the day the patient began complaining of right ear pain and sore throat. She reported pain with speaking and swallowing. Rapid strep test was obtained and found to be positive. Cardiac workup and positive strep results were discussed with the patient. The patient then confirms that she has had similar chest discomfort and palpitations in the past when acutely ill and running fevers. She feels relieved by the positive strep test and expresses that she no longer has concerns regarding her chest discomfort. As the patient has an anaphylactic reaction to penicillins, she is placed on azithromycin. She is also provided prescriptions for Chloraseptic throat spray , Zofran, and viscous lidocaine for swish/gargle as needed for discomfort. She is recommended to follow-up with her primary care provider within 1 week. She is also instructed to notify her established outpatient shank pinner of her admission and follow-up as directed. At time of discharge the patient is in stable condition, maintaining oxygen saturation on room air, and denies chest discomfort. Physical Exam Vital Signs: Temp Pulse Resp BP Pulse Ox 98.8 F 100 12 118/62 98 05/01/18 15:21 05/01/18 15:21 05/01/18 15:21 05/01/18 15:21 05/01/18 15:21 Intake & Output 04/30/18 05/01/18 05/02/18 06:59 06:59 06:59 Intake Total 360 Balance 360 Weight 99 kg General appearance: PRESENT: no acute distress, obese, well-developed, well- nourished Head exam: PRESENT: atraumatic, normocephalic Eye exam: PRESENT: conjunctiva pink, EOMI, PERRLA. ABSENT: scleral icterus Ear exam: PRESENT: normal external ear exam Mouth exam: PRESENT: moist, tongue midline Throat exam: PRESENT: post pharyngeal erythema, other - s/p tonsillectomy.. ABSENT: tonsillar erythema, tonsillar exudate, tonsillogmegaly Neck exam: ABSENT: carotid bruit, JVD, lymphadenopathy, thyromegaly Respiratory exam: PRESENT: clear to auscultation gabriel. ABSENT: rales, rhonchi, wheezes Cardiovascular exam: PRESENT: RRR. ABSENT: diastolic murmur, rubs, systolic murmur Pulses: PRESENT: normal dorsalis pedis pul Vascular exam: PRESENT: normal capillary refill GI/Abdominal exam: PRESENT: normal bowel sounds, soft. ABSENT: distended, guarding, mass, organolmegaly, rebound, tenderness Rectal exam: PRESENT: deferred Extremities exam: PRESENT: full ROM. ABSENT: calf tenderness, clubbing, pedal edema Neurological exam: PRESENT: alert, awake, oriented to person, oriented to place , oriented to time, oriented to situation, CN II-XII grossly intact. ABSENT: motor sensory deficit Psychiatric exam: PRESENT: appropriate affect, normal mood. ABSENT: homicidal ideation, suicidal ideation Skin exam: PRESENT: dry, intact, warm. ABSENT: cyanosis, rash Results Laboratory Results: 05/01/18 06:35 05/01/18 06:35 Sodium 139.8 Potassium 3.2 L Chloride 98 Carbon Dioxide 28 Anion Gap 14 BUN 11 Creatinine 0.65 Est GFR ( Amer) > 60 Est GFR (Non-Af Amer) > 60 Glucose 153 H Calcium 9.7 Triglycerides 55 Cholesterol 190.64 LDL Cholesterol Direct 100 VLDL Cholesterol 11.0 HDL Cholesterol 58 05/01/18 05/01/18 06:35 13:46 CK-MB (CK-2) 0.72 0.65 Troponin I < 0.012 < 0.012 Impressions: Chest X-Ray 04/30/18 20:39 IMPRESSION: NO ACUTE RADIOGRAPHIC FINDING IN THE CHEST. Qualifiers - * PATIENT BEING DISCHARGED WITH ANY OF THE FOLLOWING DIAGNOSIS: No Plan Discharge Plan: Discharge to home with self-care. Follow-up with primary care provider within 1 week. Notify shank pinner of admission and follow-up as directed. Time Spent: Less than 30 Minutes
[2018-05-01] MEDS ORDERED: ATORVASTATIN CALCIUM 20 MG TABLET PO SCH (22:00)
[2018-05-01] MEDS ORDERED: ATORVASTATIN CALCIUM 10 MG TABLET PO SCH (22:00)
[2018-05-02] MEDS ORDERED: LOSARTAN POTASSIUM 25 MG TABLET PO SCH (10:00)
[2018-05-02] MEDS ORDERED: (PENDING PHARMACY ID) (Multivit/Folic Acid/Vit K1 [One-A-Day Women's 50 Plus Tab] 1 EACH) PO SCH (10:00)
[2018-05-02] MEDS ORDERED: (PENDING PHARMACY ID) (Pravastatin Sodium [Pravachol] 40 MG) PO SCH (10:00)
[2018-05-02] MEDS ORDERED: (PENDING PHARMACY ID) (Ubidecarenone/Vit E Acet [Co Q-10 100 Mg Softgel] 1 EACH) PO SCH (10:00)
[2018-05-02] MEDS ORDERED: MULTIVITAMIN TABLET PO SCH (10:00)
== END 2018-05-01 19:00 | disposition home or self-care (01) ==
LOC: ER 20:10 → EH 05-01 01:47 → 4S 05-01 02:50
PROVIDERS: ADMIT Internal Medicine; ATTEND Internal Medicine
DX: R07.89 Other chest pain (principal); E11.9 Type 2 diabetes mellitus without complications; I10 Essential (primary) hypertension; J02.0 Streptococcal pharyngitis; E78.5 Hyperlipidemia, unspecified; R00.0 Tachycardia, unspecified; R10.9 Unspecified abdominal pain; R11.0 Nausea; F41.9 Anxiety disorder, unspecified; R06.02 Shortness of breath; R00.2 Palpitations; H92.01 Otalgia, right ear; R14.3 Flatulence; Z79.82 Long term (current) use of aspirin; Z79.899 Other long term (current) drug therapy; Z79.84 Long term (current) use of oral hypoglycemic drugs; Z90.710 Acquired absence of both cervix and uterus; Z82.49 Family history of ischemic heart disease and other diseases of the circulatory system
CPT/HCPCS: 93005; 99285; 96374; 96375; 36415 ×2; 82553; 87880; 82962; 85025; 80048 ×2; 84484 ×2; 83036; 85379; 80061; 93017; 71045; 78452; 71275; 93010; G0378 ×2; A9500; J2785; J1644; J3010 ×2; J2765; J3490; J2405 ×2; Q9969

== ENCOUNTER 2018-12-21 00:02 | Emergency (ER) | payer BC, OTHER ==
--- NOTE | 2018-12-21 01:38 | ER Document Report ---
ED Medical Screen (RME) - General Chief Complaint: Chest Pain Stated Complaint: CHEST PAIN Time Seen by Provider: 12/21/18 01:31 Primary Care Provider: IGNACIO SAVAGE MD [Primary Care Provider] - Follow up as needed Mode of Arrival: Wheelchair Information source: Patient Notes: 58-year-old female presented to ED for complaint of chest pain all day with fever and chills the last 3-4 days. She states she is also had a cough nasal drainage or weakness for the last 3-4 days. She states her mouth feels very dry the day. States she went to the MD on Thursday and they told her that she thought she might have caught a bug but I did not do a chest x-ray run any labs on her. Family stated that because she continued to have symptoms they brought her to the emergency room. Patient is alert oriented respirations regular and unlabored lungs are clear to auscultation. Patient does have a elevated blood sugar in the emergency room of 193 by fingerstick. CBC chemistry and troponin and chest x-ray were ordered. EKG is already been done. I have greeted and performed a rapid initial assessment of this patient. A comprehensive ED assessment and evaluation of the patient, analysis of test results and completion of medical decision making process will be conducted by an additional ED providers. TRAVEL OUTSIDE OF THE [place] IN LAST 30 DAYS: No - Related Data Allergies/Adverse Reactions: Penicillins Allergy (Severe, Verified 05/01/18 10:34) Anaphylaxis Past Medical History - Past Medical History Cardiac Medical History: Reports: Hx Hypercholesterolemia, Hx Hypertension Endocrine Medical History: Reports: Hx Diabetes Mellitus Type 2 Renal/ Medical History: Denies: Hx Peritoneal Dialysis GI Medical History: Reports: Hx Gastroesophageal Reflux Disease Psychiatric Medical History: Denies: Hx Depression Past Surgical History: Reports: Hx Hysterectomy, Hx Tonsillectomy - Immunizations Hx Diphtheria, Pertussis, Tetanus Vaccination: No Physical Exam - Vital signs Vitals: Temp Pulse Resp BP Pulse Ox 100.2 F 105 H 20 122/67 100 12/21/18 00:19 12/21/18 00:19 12/21/18 00:19 12/21/18 00:19 12/21/18 00:19 Course - Vital Signs Vital signs: Temp Pulse Resp BP Pulse Ox 100.2 F 105 H 20 122/67 100 12/21/18 00:19 12/21/18 00:19 12/21/18 00:19 12/21/18 00:19 12/21/18 00:19 - Laboratory Laboratory results interpreted by me: 12/21/18 00:25 POC Glucose 193 H Doctor's Discharge - Discharge Referrals: IGNACIO SAVAGE MD [Primary Care Provider] - Follow up as needed
--- NOTE | 2018-12-21 02:41 | ER Document Report ---
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 Patient reports she was at work when she felt lightheaded and dizzy, felt as though she was going to "pass out" but did not, denies preceding symptoms such as tachycardia, no recent fevers or chills, no other symptoms currently is a patient reports being at her baseline. Patient did report having small amount of chest pain immediately after the event but this was short-lived and is consistent with her previous episodes of near syncope. Of note, patient has been evaluated by neurology and has received numerous workups with an unknown etiology according to her report. Onset: Sudden Provocation: Unknown Quality: Near syncope Radiation: None Severity: Mild Timing: Resolved REVIEW OF SYSTEMS: CONSTITUTIONAL : Denies fever or chills, no sweats. Denies recent illness. EENT: Denies eye, ear, throat, or mouth pain or symptoms. Denies nasal or sinus congestion. CARDIOVASCULAR: Denies chest pain. RESPIRATORY: Denies cough, cold, or chest congestion. Denies shortness of breath, difficulty breathing, or wheezing. GASTROINTESTINAL: Denies abdominal pain. Denies nausea, vomiting, or diarrhea. Denies constipation. GENITOURINARY: Denies difficulty urinating, painful urination, burning, frequency, or blood in urine. FEMALE GENITOURINARY: Denies vaginal bleeding, abnormal or irregular periods. Last menstrual period MUSCULOSKELETAL: Denies neck or back pain or joint pain or swelling. SKIN: Denies rash or skin lesions. HEMATOLOGIC : Denies easy bruising or bleeding. LYMPHATIC: Denies swollen, enlarged glands. NEUROLOGICAL: Positive for near syncope. Denies altered mental status or loss of consciousness. Denies headache. Denies weakness or paralysis or loss of use of either side. Denies problems with gait or speech. Denies sensory or motor loss. PSYCHIATRIC: Denies anxiety or stress or depression. All other systems reviewed and negative. PHYSICAL EXAMINATION: GENERAL: Well-appearing, well-nourished and in no acute distress. HEAD: Atraumatic, normocephalic. No scalp deformity, depression, or crepitance. EYES: Pupils are 3 mm and equal/round/reactive to light, extraocular movements intact, sclera anicteric, conjunctiva are normal. ENT: Nares patent bilaterally, oropharynx clear without exudates or palatal petechia. Moist mucous membranes. No tonsil hypertrophy. NECK: Normal range of motion, supple without lymphadenopathy. LUNGS: Breath sounds present, equal, and clear to auscultation bilaterally. No wheezes, rales, or rhonchi. HEART: Regular rate and rhythm without murmurs, rubs, or gallops. 2+ peripheral pulses. Normal capillary refill. ABDOMEN: Soft, nontender, nondistended. Normoactive bowel sounds. No guarding, no rebound. No masses appreciated. BACK: Normal contour, no midline tenderness. Rectal exam deferred. PELVC: Deferred. EXTREMITIES: Normal range of motion, no pitting or edema. No cyanosis. NEUROLOGICAL: No focal neurological deficits. Moves all extremities spontaneously and on command. PSYCH: Normal mood, normal affect. No suicidal thoughts/ideations. No homocidal thoughts/ideations. No hallucinations. SKIN: Warm, dry, normal turgor, no rashes or lesions noted. ASSESSMENT AND PLAN: This patient is a 58-year-old female who presents with recurrent episode of near syncope, currently unknown etiology but could include dehydration versus vasovagal syndrome versus orthostasis versus cardiac versus UTI. 1. Will obtain labs including cardiac enzymes, thyroid panel, urinalysis, d-d rebeca, and reassess. 2. Will likely discharge patient if workup is normal/negative. TRAVEL OUTSIDE OF THE [place] IN LAST 30 DAYS: No - Related Data Allergies/Adverse Reactions: Penicillins Allergy (Severe, Verified 05/01/18 10:34) Anaphylaxis Past Medical History - General Information source: Patient - Social History Smoking Status: Never Smoker Chew tobacco use (# tins/day): No Frequency of alcohol use: None Drug Abuse: None Lives with: Family Family History: Reviewed & Not Pertinent Patient has suicidal ideation: No Patient has homicidal ideation: No - Past Medical History Cardiac Medical History: Reports: Hx Hypercholesterolemia, Hx Hypertension Pulmonary Medical History: Reports: None EENT Medical History: Reports: None Neurological Medical History: Reports: None Endocrine Medical History: Reports: Hx Diabetes Mellitus Type 2 Renal/ Medical History: Reports: None. Denies: Hx Peritoneal Dialysis Malignancy Medical History: Reports: None GI Medical History: Reports: Hx Gastroesophageal Reflux Disease Musculoskeletal Medical History: Reports None Skin Medical History: Reports None Psychiatric Medical History: Reports: None Denies: Hx Depression Traumatic Medical History: Reports: None Infectious Medical History: Reports: None Past Surgical History: Reports: Hx Breast Surgery - L breast cancer removed, Hx Hysterectomy, Hx Tonsillectomy - Immunizations Immunizations up to date: Yes Hx Diphtheria, Pertussis, Tetanus Vaccination: No Physical Exam - Vital signs Vitals: Temp Pulse Resp BP Pulse Ox 100.2 F 105 H 20 122/67 100 12/21/18 00:19 12/21/18 00:19 12/21/18 00:19 12/21/18 00:19 12/21/18 00:19 Course - Re-evaluation Re-evalutation: 12/21/18 06:57 Lab work indicates negative cardiac enzymes, negative d-dimer, negative urinalysis. However, thyroid panel shows evidence of hypothyroidism. Chest x- ray is negative for acute pneumonia. Patient does have mild tachycardia, when considered in context of a likely viral etiology, is a normal response to fever. She was given oral Tylenol with improvement while in the emergency department. She will be discharged home with return precautions and follow-up with her primary physician. Patient voices both understanding and agreeing with the plan. - Vital Signs Vital signs: Temp Pulse Resp BP Pulse Ox 98.9 F 109 H 20 111/56 L 99 12/21/18 04:30 12/21/18 02:45 12/21/18 02:45 12/21/18 02:45 12/21/18 02:45 - Laboratory Result Diagrams: 12/21/18 03:53 12/21/18 03:53 Laboratory results interpreted by me: 12/21/18 12/21/18 12/21/18 00:25 01:06 03:53 Hct 35.2 L RDW 14.2 H Seg Neuts % (Manual) 93 H Lymphocytes % (Manual) 2 L Abs Lymphs (Manual) 0.1 L Glucose POC Glucose 193 H TSH Urine Ketones TRACE H Urine Ascorbic Acid 20 H 12/21/18 12/21/18 03:53 03:53 Hct RDW Seg Neuts % (Manual) Lymphocytes % (Manual) Abs Lymphs (Manual) Glucose 179 H POC Glucose TSH 0.41 L Urine Ketones Urine Ascorbic Acid - Diagnostic Test Radiology reviewed: Image reviewed, Reports reviewed - EKG Interpretation by Me EKG shows normal: Sinus rhythm Rate: Tachycardia Rhythm: NSR [place]/QRS: No: Right axis deviation, Left axis deviation, RBBB, LBBB, IVCD, LAHB/LAFB, LPHB/LPFB, Bifasicular block Voltage: No: Increased voltage, Consistant with LVH, Decreased voltage, Throughout, Limb leads P Waves: No: CHETNA, LAE, Absent, AV Dissociation, Other Heart block present: No: 1st Degree, Mobitz 1, Mobitz 2, CHB (3rd degree block) When compared to previous EKG there are: No significant change Discharge - Discharge Clinical Impression: Viral syndrome Hypothyroidism Qualifiers: Hypothyroidism type: unspecified Qualified Code(s): E03.9 - Hypothyroidism, unspecified Condition: Good Disposition: HOME, SELF-CARE Instructions: Viral Syndrome ([facility]), Hypothyroidism ([facility]) Additional Instructions: You have been evaluated in the Emergency Department for viral syndrome and low thyroid. Please follow-up with your [primary physician] as instructed in 1 week to be rechecked. Return to the Emergency Department if you experience further episodes of feeling weak, passing out, chest pains, swelling of the extremities, difficulty breathing, or any other concerning symptoms. Prescriptions: Levothyroxine Sodium [Synthroid 0.025 mg Tablet] 0.025 mg PO DAILY #30 tablet Referrals: IGNACIO SAVAGE MD [Primary Care Provider] - Follow up as needed Print Language: Croatian
[2018-12-21] MEDS ORDERED: ASPIRIN 81 MG TABLET, CHEWABLE PO ONE (03:13)
[2018-12-21 03:34] LABS: APPEARANCE,URINE CLEAR; BILIRUBIN,URINE NEGATIVE (NEGATIVE); COLOR,URINE YELLOW; GLUCOSE, URINE NEGATIVE (NEGATIVE); KETONES,URINE TRACE mg/dL (NEGATIVE); LEUKOCYTE ESTERASE,URINE NEGATIVE (NEGATIVE); NITRITE,URINE NEGATIVE (NEGATIVE); PROTEIN,URINE NEGATIVE (NEGATIVE); URINE SPECIFIC GRAVITY 1.024; UROBILINOGEN,URINE NEGATIVE mg/dL (<2.0)
[2018-12-21 03:59] LABS: HEMATOCRIT 35.2 % (36.0-47.0); MEAN CORPUSCULAR HGB CONC 34.1 g/dL (32.0-36.0); MEAN CORPUSCULAR VOLUME 82 fl (80-97); PLATELET COUNT 265 10^3/uL (150-450); RED BLOOD COUNT 4.28 10^6/uL (3.72-5.28); RED CELL DISTRIBUTION WIDTH 14.2 % (11.5-14.0); WHITE BLOOD COUNT 5.8 10^3/uL (4.0-10.5)
[2018-12-21 04:19] LABS: ABSOLUTE LYMPHOCYTES# (MANUAL) 0.1 10^3/uL (0.5-4.7); ABSOLUTE MONOCYTES # (MANUAL) 0.3 10^3/uL (0.1-1.4); ABSOLUTE NEUTROPHILS# (MANUAL) 5.4 10^3/uL (1.7-8.2); ALANINE AMINOTRANSFERASE 34 U/L (9-52); ALBUMIN 4.2 g/dL (3.5-5.0); ALKALINE PHOSPHATASE 52 U/L (38-126); ANION GAP 10 (5-19); ANISOCYTOSIS SLIGHT; ASPARTATE AMINO TRANSFERASE 33 U/L (14-36); BASOPHILS % (MANUAL) 0 % (0-2); BILIRUBIN,DIRECT 0.2 mg/dL (0.0-0.4); BILIRUBIN,TOTAL 0.3 mg/dL (0.2-1.3); BLOOD UREA NITROGEN 12 mg/dL (7-20); CALCIUM 9.7 mg/dL (8.4-10.2); CARBON DIOXIDE 28 mmol/L (22-30); CHLORIDE 100 mmol/L (98-107); EOSINOPHILS % (MANUAL) 0 % (0-6); GLUCOSE 179 mg/dL (75-110); LYMPHOCYTES % (MANUAL) 2 % (13-45); MONOCYTES % (MANUAL) 5 % (3-13); PLATELET COMMENT ADEQUATE; PLATELET LARGE PRESENT; POTASSIUM 3.7 mmol/L (3.6-5.0); SCHISTOCYTES SLIGHT; SEGMENTED NEUTROPHILS % (MAN) 93 % (42-78); SODIUM 137.7 mmol/L (137-145); TOTAL CELLS COUNTED 100; TOTAL PROTEIN 7.5 g/dL (6.3-8.2); TOXIC GRANULATION SLIGHT
[2018-12-21 05:05] LABS: FREE T4 (FREE THYROXINE) 0.93 ng/dL (0.78-2.19)
[2018-12-21 05:19] LABS: THYROID STIMULATING HORMONE 0.41 uIU/mL (0.47-4.68)
--- NOTE | 2018-12-21 05:59 | RADIOLOGY REPORT (SQ) ---
EXAM DESCRIPTION: X-ray two view chest. CLINICAL HISTORY: 58 years Female, chest pain cough COMPARISON: 03/27/2016 TECHNIQUE: PA and Lateral views of the chest performed on Date and time FINDINGS: The lungs are well expanded and are clear. The costophrenic sulci are clear. There is no evidence of a pneumothorax. The cardiac silhouette is normal in size. The mediastinal contours are normal. No acute osseous abnormalities are identified. There are mild degenerative changes of the thoracic spine. No focal soft tissue abnormalities are identified. IMPRESSION: No evidence of acute intrathoracic disease.
[2018-12-21 07:07] VITALS: BP 105/53
--- NOTE | 2018-12-21 07:43 | EKG REPORT ---
SEVERITY:- BORDERLINE ECG - SINUS TACHYCARDIA PROBABLE LEFT ATRIAL ABNORMALITY EARLY PRECORDIAL TRANSITION, UNCHANGED FROM OLD EKGS., : Confirmed by: Christ Cuevas MD 21-Dec-2018 07:43:08
== END 2018-12-21 07:11 | disposition home or self-care (01) ==
LOC: ER 00:02
DX: B34.9 Viral infection, unspecified (principal); E03.9 Hypothyroidism, unspecified; R07.9 Chest pain, unspecified; I10 Essential (primary) hypertension; E11.9 Type 2 diabetes mellitus without complications; R42 Dizziness and giddiness
CPT/HCPCS: 36415; 71046; 80053; 81001; 82962; 84439; 84443; 84481; 84484; 85025; 85379; 93005; 93010; 99285